=== PATIENT | female | born 1975 | race Caucasian/White ===

== ENCOUNTER → 2024-03-18 | Day surgery (SDC) | payer BC ==
[~2024-03-18] MED LIST: B12 ACTIVE1000 MCG; BENICAR5 MG PO; D3-5000125 MCG; LIDOCAINE HCL 2% LOCAL INJ 5 ML SDV VIAL INJ ONE; OZEMPIC2 MG/0.75; PROPOFOL IV EMULSION 10 MG/ML 20 ML VIAL ONE; ZYRTEC10 M3
[2024-03-18] MEDS: LACTATED RINGER'S 1,000 ML ONE (07:18)
[2024-03-18 08:59] VITALS: TEMP 98
[2024-03-18 09:30] VITALS: BP 111/75; PULSE 59; RESP 16; O2SAT 98
== END | disposition home or self-care (01) ==
LOC: OR 06:19
PROVIDERS: ATTEND Internal Medicine Gastroenterology
DX: Z12.11 Encounter for screening for malignant neoplasm of colon (principal); D12.2 Benign neoplasm of ascending colon; K21.9 Gastro-esophageal reflux disease without esophagitis; K64.8 Other hemorrhoids; Z71.3 Dietary counseling and surveillance; Z78.9 Other specified health status; E11.9 Type 2 diabetes mellitus without complications; I10 Essential (primary) hypertension; E78.5 Hyperlipidemia, unspecified; R05.9 Cough, unspecified; R50.9 Fever, unspecified; E66.01 Morbid (severe) obesity due to excess calories; Z01.810 Encounter for preprocedural cardiovascular examination; Z79.85 Long-term (current) use of injectable non-insulin antidiabetic drugs; Z79.899 Other long term (current) drug therapy; Z68.42 Body mass index [BMI] 45.0-49.9, adult
CPT/HCPCS: 36415; 45385; 84702; 88305; 93005; J2003; J2704; J7121